=== PATIENT | female | born 1940 | race Hispanic/Latino ===

== ENCOUNTER → 2021-12-26 | Outpatient (CLI) | payer OTHER | END | disposition home or self-care (01) | LOC: OIH 09:18 | PROVIDERS: ATTEND Internal Medicine Cardiovascular Disease | DX: I35.0 Nonrheumatic aortic (valve) stenosis (principal); I11.9 Hypertensive heart disease without heart failure | CPT/HCPCS: 93306 ==

== ENCOUNTER → 2024-07-02 | Outpatient (CLI) | payer OTHER ==
--- NOTE | 2024-07-03 07:57 | HMCSR ---
APPROVED REPORT EXAM: Two-dimensional and M-mode echocardiogram with Doppler and color Doppler. INDICATION ICD: I35.0 Non-rheumatic aortic valve stenosis 2D Dimensions RVDd4.2 cmLVEF(%)63.1 (>50%)LVED Vol(simp.)89.0 mL IVSd1.0 (0.7-1.1cm)FS(%)34 %LVES Vol(simp.)32.0 mL LVDd4.2 (3.8-5.6cm)Ao Root(2D)2.8 (2.0-3.7cm)LVEF(%, simp.)64 % PWd1.0 (0.7-1.1cm)LVOT diam2.0 (1.8-2.4cm)LA ESV INDEX (BP)50.44 mL/m2 LVDs2.8 (2.5-4.0cm)IVC diam1.6 cm Aortic Valve AoV Vmax2.8 m/Venus Peak GR32.5 mmHgLVOT Vmax1.1 m/s AoV VTI0.7 mAo Mean GR19.4 mmHgLVOT VTI0.31 m KATHY (VMAX)1.4 cm2AVA (VTI) 1.4 cm2 Mitral Valve MV E Vmax90.3 cm/sDECEL Znqn924 ms MV A Vmax79.3 cm/s E/A ratio1.1 MR Max PG57 mmHg TDI E/E' Jmalfh67.4E/E' [id number] Pulmonary Valve PV Vmax0.9 m/sPV VTI0.26 mPV Mean GR2 mmHg PV Peak GR3.5 mmHgPI End Rayne. Dhiraj 0.8 cm/s Tricuspid Valve TR Vmax2.6 m/sRAP (EST) 3 koSdQYHJ42.2 mmHg TR Peak GR26.2 mmHg Left Ventricle Left ventricular cavity size is normal. There is normal LV segmental wall motion. There is borderline concentric left ventricular hypertrophy. LVEF is 60-65%. Grade 2 diastolic dysfunction. Right Ventricle The right ventricle is mildly dilated. The right ventricular systolic function is normal. Atria The left atrium is severely dilated. The right atrium is mildly dilated. Aortic Valve The aortic valve is calcified and displays decreased opening. Trace aortic regurgitation. Moderate ao rtic stenosis. Calculated aortic valve area is 1.4 cm2 with maximum pressure gradient of 32.5 mmHg an d mean pressure gradient of 19.4 mmHg. Mitral Valve Mitral valve leaflets are mildly sclerotic but open well. Mitral regurgitation is trace. There is no mitral valve stenosis. Tricuspid Valve The tricuspid valve leaflets appear normal. There is trace to mild tricuspid regurgitation. Pulmonic Valve Pulmonic valve is not well visualized. There is trace pulmonic valvular regurgitation. Great Vessels The aortic root is normal in size. The IVC is normal in size and collapses >50% with inspiration. Pericardium No pericardial effusion. Conclusion There is borderline concentric left ventricular hypertrophy. LVEF is 60-65%. Grade 2 diastolic dysfunction. The aortic valve is calcified and displays decreased opening. Trace aortic regurgitation. Moderate aortic stenosis. Calculated aortic valve area is 1.4 cm2 with maximum pressure gradient of 3 2.5 mmHg and mean pressure gradient of 19.4 mmHg.
== END | disposition home or self-care (01) ==
LOC: SHCH 12:20
PROVIDERS: ATTEND Internal Medicine Cardiovascular Disease
DX: I08.3 Combined rheumatic disorders of mitral, aortic and tricuspid valves (principal)
CPT/HCPCS: 93306